=== PATIENT | male | born 1970 | race Caucasian/White ===

== ENCOUNTER 2018-05-26 17:31 | Outpatient (REF) | payer MEDICAID, SELFPAY ==
[2018-05-26 23:26] LABS: ALT 198 U/L (12-78); AST 74 U/L (15-37); Albumin 3.9 g/dL (3.4-5.0); Alkaline Phosphatase 115 U/L (46-116); Anion Gap 8.4 mmol/L (3-11); BUN 16 mg/dL (7-18); Bilirubin, Total 0.4 mg/dL (0.2-1.0); CO2 28.6 mmol/L (21.0-32.0); CREATININE 1.17 mg/dL (0.70-1.30); Calcium 8.7 mg/dL (8.5-10.1); Chloride 102 mmol/L (98-107); Glucose 93 mg/dL (70-100); Sodium 139 mmol/L (136-145); Total Protein 6.7 g/dL (6.4-8.2)
[2018-05-28 10:59] LABS: HIV-1/2 Ag & Ab Screen Negative (NEGAT)
[2018-05-31 15:16] LABS: HCV Genotype 2 (Undetected)
== END 2018-05-26 17:51 ==
LOC: NCHCN 17:31
PROVIDERS: PCP Registered Nurse; Visit Provider Registered Nurse
DX: B18.2 Chronic viral hepatitis C (principal); Z11.3 Encounter for screening for infections with a predominantly sexual mode of transmission; Z11.4 Encounter for screening for human immunodeficiency virus [HIV]
CPT/HCPCS: 80053; 86803; 87389; 87521; 87522

== ENCOUNTER 2018-10-29 15:02 | Emergency (ER) | payer MEDICAID, SELFPAY ==
[2018-10-29 15:05] VITALS: BP 126/81; PULSE 76; RESP 20; TEMP 37.1; O2SAT 99
--- NOTE | 2018-10-29 15:30 | W.ED.GENAD ---
Discharge Plan Disposition Patient Disposition: HOME Condition: Improving Discharge Details Chief Complaint: PsychEval Clinical Impression: Anxiety Primary Care Provider: CHALINO HUGHES ED Provider: Kimani Swanson Home Meds and New Rx's Prescriptions: No Action No Known Home Meds RF: 0 Discharge Instructions Instructions: Anxiety (ED) Additional Instructions: Return at any time for reevaluation. Follow-up with your medical appointments this week as planned. Continue to stay in contact with [facility] services. Medical Decision Making 48-year-old male presents from primary care physician's office. Patient states he has months of slowly increasing anxiety and stressors related to living in [place], working in [place], being to his who lives in [place]. He is currently on parole and has limited mobility. He has had near daily headache for years. He states he underwent medical screening at [facility] recently including a CAT scan of the head and as well was seen in the emergency department on Thursday with plans for possible psychiatric inpatient placement of [place] which he declined. He was discharged to home, has had ongoing anxieties that increased today. He feels as if he is going to explode. He feels high anxiety, ongoing mild, dull, achy headache without fever or rash. No recent illness. Records requested from [facility]'s visit 2 days ago. Patient underwent medical screening examination today. He has normal vital signs and his exam is unremarkable. He does seem mildly anxious and agitated. Records received and reviewed: Drug screen obtained on October 27 shows positive for THC. Salicylate level negative, TSH 0.9, urine negative for acute infection, CBC with white count 9, hematocrit 46, platelets 256, comprehensive metabolic panel showed BUN 15, creatinine 1, sodium 143, glucose 104, potassium 3.8, chloride 104, CO2 29, calcium 8.7, total bili 0.3, AST 67, ALT 197. As these labs obtained 2 days ago, do not feel repeat is indicated. Patient seen by MICHELE in consultation. Plan for outpatient care established. Patient is not a danger to himself or others. He is stable for outpatient management and will continue to follow with [facility]. HPI General Mode of arrival: ambulatory. Date/Time Provider Initiated Documentation: 10/29/18 15:03. Limitations to Documentation: no limitations. Information obtained by: patient and family. History of Present Illness 48 year old M presents to the emergency department with the chief complaint of Anxiety, stress, months of headaches, described as moderate, Quality is described as constant, and is localized to the head. Patient reports no radiation. Patient started experiencing this week(s) and it has been intermittent. No relieving factors improve symptom(s), No exacerbating factors reported . Patient notes denies confusion, chest pain, rash, seizure and syncope. Patient did receive the following treatments prior to arrival, NSAID Related Data Home Medications Medication Instructions Recorded Confirmed Unknown [No Known Home Meds] 10/29/18 10/29/18 Allergies Allergy/AdvReac Type Severity Reaction Status Date / Time bupropion [From Wellbutrin] Allergy Hives Unverified 10/29/18 15:10 Penicillins Allergy Other (See Unverified 10/29/18 15:10 Comment) General Stated Complaint: PsychEval CHELSEA: 2 Review of Systems Review of Systems Increased stress around parole, inability to use marijuana, social and financial stressors. He is had daily headaches for years that resolve primarily with ibuprofen. No thoughts of harming himself or others. 10 systems reviewed and otherwise negative [facility] Social History Smoking/Tobacco Use Status: Current every day Alcohol Intake: former Drug use: Occasionally Substance use type: former substance user and marijuana Do you feel safe at home: Yes Do you feel safe in your relationship?: Yes Exam Narrative Exam Narrative: GEN: awake, alert, oriented 3. Pleasant, well groomed, interactive. HEAD: Normocephalic, atraumatic ENT: Mucous membranes moist, oropharynx unremarkable, External ear exam unremarkable EYES: PERRL, EOMI NECK: Full ROM, no CRUZ, no menigismus CHEST/RESP: Nontender, clear to auscultation bilateral, no wheeze/rhonchi/rales CARDIOVASCULAR: RRR, no murmur, rub susi. 2+ Rad pulse bilateral ABDOMEN: Soft, nontender, no mass. +Bowel sounds EXT: Full ROM, no edema, no rash Neuro: Grossly normal neurologic exam, conversant, interactive. Psych: Speech fluent, thoughts congruent, affect anxious Course Vital Signs Temperature 37.1 C 10/29/18 15:05 Pulse 76 10/29/18 15:05 Respiratory Rate 20 10/29/18 15:05 Blood Pressure 126/81 10/29/18 15:05 Pulse Oximetry 99 10/29/18 15:05 Temperature 37.1 C 10/29/18 15:05 Temperature Source Temporal Artery Scan 10/29/18 15:05 Pulse 76 10/29/18 15:05 Respiratory Rate 20 10/29/18 15:05 Respiratory Effort Non-Labored 10/29/18 15:05 Blood Pressure 126/81 10/29/18 15:05 Blood Pressure Position Sitting 10/29/18 15:05 Pulse Oximetry 99 10/29/18 15:05 Oxygen Delivery Method Room Air 10/29/18 15:05 Oxygen Flow Rate 0 10/29/18 15:05 Pain Level 10 10/29/18 15:05
--- NOTE | 2018-10-29 15:34 | ED.GENADUL_ITS ---
Discharge Plan Disposition Patient Disposition: HOME Condition: Improving Discharge Details Chief Complaint: PsychEval Clinical Impression: Anxiety Primary Care Provider: CHALINO HUGHES ED Provider: Kimani Swanson Home Meds and New Rx's Prescriptions: No Action No Known Home Meds RF: 0 Discharge Instructions Instructions: Anxiety (ED) Additional Instructions: Return at any time for reevaluation. Follow-up with your medical appointments this week as planned. Continue to stay in contact with [facility] services. Medical Decision Making 48-year-old male presents from primary care physician's office. Patient states he has months of slowly increasing anxiety and stressors related to living in [place], working in [place], being to his who lives in [place]. He is currently on parole and has limited mobility. He has had near daily headache for years. He states he underwent medical screening at [facility] recently including a CAT scan of the head and as well was seen in the emergency department on Thursday with plans for possible psychiatric inpatient placement of [place] which he declined. He was discharged to home, has had ongoing anxieties that increased today. He feels as if he is going to explode. He feels high anxiety, ongoing mild, dull, achy headache without fever or rash. No recent illness. Records requested from [facility]'s visit 2 days ago. Patient underwent medical screening examination today. He has normal vital signs and his exam is unremarkable. He does seem mildly anxious and agitated. Records received and reviewed: Drug screen obtained on October 27 shows positive for THC. Salicylate level negative, TSH 0.9, urine negative for acute infection, CBC with white count 9, hematocrit 46, platelets 256, comprehensive metabolic panel showed BUN 15, creatinine 1, sodium 143, glucose 104, potassium 3.8, chloride 104, CO2 29, calcium 8.7, total bili 0.3, AST 67, ALT 197. As these labs obtained 2 days ago, do not feel repeat is indicated. Patient seen by MICHELE in consultation. Plan for outpatient care established. Patient is not a danger to himself or others. He is stable for outpatient management and will continue to follow with [facility]. HPI General Mode of arrival: ambulatory . Date/Time Provider Initiated Documentation: 10/29/18 15:03 . Limitations to Documentation: no limitations . Information obtained by: patient and family . History of Present Illness 48 year old M presents to the emergency department with the chief complaint of Anxiety, stress, months of headaches, described as moderate, Quality is described as constant, and is localized to the head. Patient reports no radiation. Patient started experiencing this week(s) and it has been intermittent. No relieving factors improve symptom(s), No exacerbating factors reported . Patient notes denies confusion, chest pain, rash, seizure and syncope. Patient did receive the following treatments prior to arrival, NSAID Related Data Home Medications Medication Instructions Recorded Confirmed Unknown [No Known Home Meds] 10/29/18 10/29/18 Allergies Allergy/AdvReac Type Severity Reaction Status Date / Time bupropion [From Wellbutrin] Allergy Hives Unverified 10/29/18 15:10 Penicillins Allergy Other (See Unverified 10/29/18 15:10 Comment) General Stated Complaint: PsychEval CHELSEA: 2 Review of Systems Review of Systems Increased stress around parole, inability to use marijuana, social and financial stressors. He is had daily headaches for years that resolve primarily with ibuprofen. No thoughts of harming himself or others. 10 systems reviewed and otherwise negative [facility] Social History Smoking/Tobacco Use Status: Current every day Alcohol Intake: former Drug use: Occasionally Substance use type: former substance user and marijuana Do you feel safe at home: Yes Do you feel safe in your relationship?: Yes Exam Narrative Exam Narrative: GEN: awake, alert, oriented 3. Pleasant, well groomed, interactive. HEAD: Normocephalic, atraumatic ENT: Mucous membranes moist, oropharynx unremarkable, External ear exam unremarkable EYES: PERRL, EOMI NECK: Full ROM, no CRUZ, no menigismus CHEST/RESP: Nontender, clear to auscultation bilateral, no wheeze/rhonchi/rales CARDIOVASCULAR: RRR, no murmur, rub susi. 2+ Rad pulse bilateral ABDOMEN: Soft, nontender, no mass. +Bowel sounds EXT: Full ROM, no edema, no rash Neuro: Grossly normal neurologic exam, conversant, interactive. Psych: Speech fluent, thoughts congruent, affect anxious Course Vital Signs Temperature 37.1 C 10/29/18 15:05 Pulse 76 10/29/18 15:05 Respiratory Rate 20 10/29/18 15:05 Blood Pressure 126/81 10/29/18 15:05 Pulse Oximetry 99 10/29/18 15:05 Temperature 37.1 C 10/29/18 15:05 Temperature Source Temporal Artery Scan 10/29/18 15:05 Pulse 76 10/29/18 15:05 Respiratory Rate 20 10/29/18 15:05 Respiratory Effort Non-Labored 10/29/18 15:05 Blood Pressure 126/81 10/29/18 15:05 Blood Pressure Position Sitting 10/29/18 15:05 Pulse Oximetry 99 10/29/18 15:05 Oxygen Delivery Method Room Air 10/29/18 15:05 Oxygen Flow Rate 0 10/29/18 15:05 Pain Level 10 10/29/18 15:05
[2018-10-29] MEDS: Ibuprofen 800 MG TAB PO (15:38)
[2018-10-29] MEDS: LORazepam 1 MG TAB PO (15:38)
--- NOTE | 2018-10-29 16:16 | PDOC.MHCN ---
Date of service: 10/29/18 Time of Service: 16:16 Mental Health Crisis Note Presenting Issue How did you arrive at the ED and why did you come: Romario arrived to the emergency room at [facility] on his own cognition following two screenings that have occurred this week. Romario was screened at [facility] by [facility] for anxiety that showed some signs of paranoia. It is reported a hospital bed was offered to him, but he did not take it. Following the screening, [facility] called [facility] emergency services and recommended outreach. The outreach occurred this morning and a further screening was recommended by his PCP at [facility]. That screening resulted in he going to [facility] for medical clearance to try for placement based on his report of symptoms and persistence of symptoms since the evaluation on 10-27-18. Precipitating Factors Romario reports he has a high level of anxiety related to work and legal stressors. However, in large settings (including hospital) he presents with signs of fear and paranoia that others are talking about him and trying to get him in trouble. He remains calm and composed, but states he is anxious and does not trust himself. He reports a history of three suicide attempts via hanging. He reports two hospitalizations approximately 20 years ago. One at [facility] and one at [facility]. He does not identify having suicidal ideation at the time of the assessment. However, when discussing what could happen if symptoms continue to progress, he reports a fear of him hurting himself or others. He also reports he is at the same point he was 20 years ago when he was hospitalized due to anxiety and being overwhelmed with things he is trying to do. Disposition BEHAVIOR: melancholic to sullen EYE CONTACT: fair MOOD: anxious, slightly elevated thought pattern AFFECT: flat APPETITE: good SLEEP(trouble falling/staying asleep: poor/reports only getting 3-4 hours per night. Plan Voluntary hospitalization will be sought. He will remain at [facility] until placement is completed.
--- NOTE | 2018-10-29 16:27 | PDOC.MHCN_ITS ---
Date of service: 10/29/18 Time of Service: 16:16 Mental Health Crisis Note Presenting Issue How did you arrive at the ED and why did you come: Romario arrived to the emergency room at [facility] on his own cognition following two screenings that have occurred this week. Romario was screened at [facility] by [facility] for anxiety that showed some signs of paranoia. It is reported a hospital bed was offered to him, but he did not take it. Following the screening, [facility] called [facility] emergency services and recommended outreach. The outreach occurred this morning and a further screening was recommended by his PCP at [facility]. That screening resulted in he going to [facility] for medical clearance to try for placement based on his report of symptoms and persistence of symptoms since the evaluation on 10-27-18. Precipitating Factors Romario reports he has a high level of anxiety related to work and legal stressors. However, in large settings (including hospital) he presents with signs of fear and paranoia that others are talking about him and trying to get him in trouble. He remains calm and composed, but states he is anxious and does not trust himself. He reports a history of three suicide attempts via hanging. He reports two hospitalizations approximately 20 years ago. One at [facility] and one at [facility]. He does not identify having suicidal ideation at the time of the assessment. However, when discussing what could happen if symptoms continue to progress, he reports a fear of him hurting himself or others. He also reports he is at the same point he was 20 years ago when he was hospitalized due to anxiety and being overwhelmed with things he is trying to do. Disposition BEHAVIOR: melancholic to sullen EYE CONTACT: fair MOOD: anxious, slightly elevated thought pattern AFFECT: flat APPETITE: good SLEEP(trouble falling/staying asleep: poor/reports only getting 3-4 hours per night. Plan Voluntary hospitalization will be sought. He will remain at [facility] until placement is completed.
[2018-10-29 18:03] VITALS: BP 114/76; PULSE 74; RESP 18; TEMP 36.7; O2SAT 97
[2018-10-29 18:04] VITALS: BP 114/76; PULSE 74; RESP 18; TEMP 36.7; O2SAT 97
--- NOTE | 2018-10-31 11:41 | PDOC.MHCN ---
Date of service: 10/29/18 Time of Service: 17:00 Mental Health Crisis Note Presenting Issue How did you arrive at the ED and why did you come: Addendum to previous note: Patient became anxious while waiting for referral. He did not meet criteria for an involuntary placement at that time. A safety plan with phone checks with [facility], a follow up with his private clinician, a neurology assessment at [facility], and prescribed medication options was discussed and will be addressed in [facility] follow up calls with
--- NOTE | 2018-10-31 11:44 | PDOC.MHCN_ITS ---
Date of service: 10/29/18 Time of Service: 17:00 Mental Health Crisis Note Presenting Issue How did you arrive at the ED and why did you come: Addendum to previous note: Patient became anxious while waiting for referral. He did not meet criteria for an involuntary placement at that time. A safety plan with phone checks with [facility], a follow up with his private clinician, a neurology assessment at [facility], and prescribed medication options was discussed and will be addressed in [facility] follow up calls with
== END 2018-10-29 18:15 | disposition home or self-care (01) ==
PROVIDERS: Emergency Provider Emergency Medicine; PCP Registered Nurse
DX: F41.9 Anxiety disorder, unspecified (principal); Z60.8 Other problems related to social environment; Z65.3 Problems related to other legal circumstances
CPT/HCPCS: 99283

== ENCOUNTER 2019-03-09 08:55 | Outpatient (REF) | payer MEDICAID, SELFPAY ==
[2019-03-09 22:43] LABS: ALT 23 U/L (16-63); AST 16 U/L (15-37); Albumin 3.7 g/dL (3.4-5.0); Alkaline Phosphatase 123 U/L (46-116); Anion Gap 8.4 mmol/L (3-11); Bilirubin, Direct 0.07 mg/dL (0.00-0.20); Bilirubin, Total 0.3 mg/dL (0.2-1.0); CO2 29.6 mmol/L (21.0-32.0); Chloride 105 mmol/L (98-107); Sodium 143 mmol/L (136-145); Total Protein 6.3 g/dL (6.4-8.2)
== END 2019-03-09 09:15 ==
LOC: LBN 08:55
PROVIDERS: PCP Registered Nurse; Visit Provider Psychiatry & Neurology Neurology
DX: K76.89 Other specified diseases of liver (principal)
CPT/HCPCS: 80051; 80076

== ENCOUNTER 2019-06-17 21:26 | Outpatient (REF) | payer MEDICAID, SELFPAY ==
[2019-06-20 13:56] LABS: HCV RNA Detection Quantitative 0 IU/mL (Undetected)
== END 2019-06-17 21:46 ==
LOC: LBN 21:26
PROVIDERS: PCP Registered Nurse; Visit Provider Internal Medicine Gastroenterology
DX: B18.2 Chronic viral hepatitis C (principal)
CPT/HCPCS: 87522

== ENCOUNTER 2025-05-24 20:54 | Emergency (ER) | payer SELFPAY ==
[2025-05-24 20:57] VITALS: BP 128/80; PULSE 72; RESP 16; TEMP 36.3; O2SAT 98
[2025-05-24 23:14] LABS: BE (Venous) 4 mmol/L (-2-3); HCO3 (Venous) 28 mmol/L (23-28); O2 Sat (Venous) 94 %; TCO2 (Venous) 25 mmol/L (24-29); pCO2 (Venous) 43 mmHg (41-51); pO2 (Venous) 65 mmHg
[2025-05-24 23:17] LABS: Abs Immature Grans 0.02 10^3/uL (0.0-0.06); HCT 39.6 % (40.0-50.0); HGB 13.1 g/dL (13.5-17.5); Immature Grans % 0.2 %; MCH 29.4 pg (27.0-33.0); MCHC 33.1 % (32.0-36.0); MCV 89 fL (80-95); MPV 9.0 fL (8.0-11.0); Platelet Count 308 10^3/uL (130-400); RBC 4.45 10^6/uL (4.36-5.78); RDW 13.0 % (11.8-14.1); RDW-SD 42.4 fL; WBC 9.95 10^3/uL (4.4-10.8)
--- NOTE | 2025-05-24 23:18 | W.ED.GENAD ---
Discharge Plan Discharge Details Chief Complaint: GenMedical Clinical Impression: Auditory hallucination Primary Care Provider: Shaina Winston ED Provider: Justin Mendez Home Meds and New Rx's Prescriptions: No Action No Known Home Meds HPI General Date/Time Provider Initiated Documentation: 05/24/25 21:45. HPI Narrative: 55-year-old male with past medical history of bipolar disorder, ADHD, tonsillectomy, who self admits to a history of chronic auditory and visual hallucinations, presents today for evaluation of worsening auditory and visual hallucinations. Patient states that he used to be on medications for this a few years ago, but stopped taking them because of the side effects. As of late he has been doing a fair bit of crack, most recent use was this morning. This notably worsens his symptomatology. He states that the voices and the visual disturbances are worsening. He denies any headache. He denies any vision change. He states that he sees things like his ex-, or he has voices that tell him to go places to help people. He denies any homicidal or suicidal ideations though. He denies any numbness or tingling. He denies any other complaints at this time. He presents today looking for help, rehabilitation, detox, and housing. He is currently homeless. Related Data Home Medications ?Medication ?Instructions ?Recorded ?Confirmed Unknown [No Known Home Meds] 10/29/18 05/24/25 Allergies Allergy/AdvReac Type Severity Reaction Status Date / Time bupropion (From Wellbutrin) Allergy Hives Unverified 05/24/25 21:01 Penicillins Allergy Other (See Unverified 05/24/25 21:01 Comment) General Stated Complaint: GenMedical CHELSEA: 3 Exam Narrative Exam Narrative: 1.Const: Well-nourished, Well-developed, appearing stated age 2.Eyes: PERRL, no conjunctival injection, and symmetrical lids. 3.ENT: Atraumatic external nose and ears. Moist MM. Neck: Symmetric, trachea midline, No thyromegaly. 4.CVS: +S1/S2, Peripheral pulses 2+ and equal in all extremities. Brisk capillary refill in all extremities. 5.RESP: Unlabored respiratory effort. Clear to auscultation bilaterally. No wheezes rales or rhonchi 6.GI: Soft, Nontender/Nondistended, No hepatosplenomegaly. No guarding or rebound. 7.MSK: Normocephalic/Atraumatic, Extremities w/o deformity or ttp No cyanosis or clubbing, Normal movement of all extremities 8.Skin: Warm, Dry. No rashes or lesions. 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 Sensation grossly intact, no focal neurologic deficits. 10.Psych: (AAO) x3. Appropriate mood and affect Course Vital Signs Vital signs: Vital Signs Temperature 36.3 C L 05/24/25 20:57 Pulse 72 05/24/25 20:57 Respiratory Rate 16 05/24/25 20:57 Blood Pressure 128/80 05/24/25 20:57 Pulse Oximetry 98 05/24/25 20:57 Temperature 36.3 C L 05/24/25 20:57 Pulse 72 05/24/25 20:57 Respiratory Rate 16 05/24/25 20:57 Respiratory Effort Normal 05/24/25 22:32 Blood Pressure 128/80 05/24/25 20:57 Pulse Oximetry 98 05/24/25 20:57 Oxygen Delivery Method Room Air 05/24/25 20:57 Oxygen Flow Rate 0 05/24/25 20:57 Lab/Test Results Lab/Test Results: Laboratory Tests Range/Units 05/24/25 23:08 WBC (4.4-10.8) 10^3/uL 9.95 RBC (4.36-5.78) 10^6/uL 4.45 Hgb (13.5-17.5) g/dL 13.1 L Hct (40.0-50.0) % 39.6 L MCV (80-95) fL 89 MCH (27.0-33.0) pg 29.4 MCHC (32.0-36.0) % 33.1 RDW (11.8-14.1) % 13.0 Plt Count (130-400) 10^3/uL 308 MPV (8.0-11.0) fL 9.0 Immature Gran % % 0.2 Neutrophils % % 50.1 Lymphocytes % % 39.6 Monocytes % % 7.4 Eosinophils % % 2.4 Basophils % % 0.3 Nucleated RBC % (0.0-0.3) % 0.0 Absolute Neutrophils (1.2-6.7) 10^3/uL 4.98 Absolute Lymphocytes (1.2-3.4) 10^3/uL 3.94 H Absolute Monocytes (0.1-0.8) 10^3/uL 0.74 Absolute Eosinophils (0.0-0.7) 10^3/uL 0.24 Absolute Basophils (0.0-0.2) 10^3/uL 0.03 VBG pH (7.31-7.41) 7.42 H VBG pCO2 (41-51) mmHg 43 VBG pO2 mmHg 65 VBG HCO3 (23-28) mmol/L 28 VBG Total CO2 (24-29) mmol/L 25 VBG O2 Saturation % 94 VBG Base Excess (-2-3) mmol/L 4 H Medical Decision Making 55-year-old male with past medical history of bipolar disorder, ADHD, tonsillectomy, who self admits to a history of chronic auditory and visual hallucinations, presents today for evaluation of worsening auditory and visual hallucinations. Patient states that he used to be on medications for this a few years ago, but stopped taking them because of the side effects. As of late he has been doing a fair bit of crack, most recent use was this morning. This notably worsens his symptomatology. He states that the voices and the visual disturbances are worsening. He denies any headache. He denies any vision change. He states that he sees things like his ex-, or he has voices that tell him to go places to help people. He denies any homicidal or suicidal ideations though. He denies any numbness or tingling. He denies any other complaints at this time. He presents today looking for help, rehabilitation, detox, and housing. He is currently homeless. Exam demonstrates an otherwise well-appearing male, no neurologic deficits, no evidence of altered mental status. Symptomatology appears consistent with potential schizophrenia, bipolar, or secondary effect to the crack cocaine. We will medically clear the patient, enlist the help of our mental health advocates to determine potential opportunities for placement in rehab, we will monitor closely and reassess. 1:34 AM Patient has been seen and assessed by mental health, they agree with potential for inpatient assessment. Patient is requesting inpatient assessment. We will keep the patient here until acceptance at inpatient facility. Patient will be signed out to my colleague. [facility] All Active Problems (Updated 05/25/25 @ 01:34 by Justin Mendez DO) Auditory hallucination (Acute) Social History Smoking/Tobacco Use Status: Current every day Smoking risk assessment performed?: Yes Alcohol Intake: former Drug use: Occasionally Substance use type: former substance user, marijuana and crack/cocaine Details: zylazine Do you feel safe at home: Yes Do you feel safe in your relationship?: Yes
[2025-05-24 23:20] VITALS: RESP 21
[2025-05-24 23:38] VITALS: PULSE 74; RESP 15
[2025-05-24 23:40] VITALS: PULSE 73; RESP 15
[2025-05-24 23:40] LABS: ALT 43 U/L (10-49); AST 35 U/L (<34); Albumin 3.9 g/dL (3.2-5.0); Alkaline Phosphatase 146 U/L (46-116); Anion Gap 8.7 mmol/L (3-11); BUN 19 mg/dL (9-23); Bilirubin, Total 0.20 mg/dL (0.2-1.2); CO2 27.3 mmol/L (20.0-31.0); Calcium 8.6 mg/dL (8.3-10.6); Chloride 106 mmol/L (98-107); Glucose 97 mg/dL (74-106); Potassium 3.5 mmol/L (3.5-5.1); Sodium 142 mmol/L (136-145); Total Protein 6.5 g/dL (5.7-8.2)
[2025-05-24 23:42] LABS: TSH (W/Ref FT4) 2.40 uIU/mL (0.55-4.78)
[2025-05-24 23:45] LABS: Acetaminophen < 2 ug/mL (10-20); Salicylate < 3.0 mg/dL (<30.0)
[2025-05-25] VITALS (15 sets, daily range): BP systolic 144–160; BP diastolic 62–78; PULSE 71–86; RESP 14–18; TEMP 36.8; O2SAT 97
--- NOTE | 2025-05-25 01:36 | PDOC.MHCN_ITS ---
Date of service: 05/25/25 Time of Service: 01:13 Mental Health Emergency Note Release [facility] release signed:: No Reason for Visit Romario has had two previous encounters with [facility] but is not well known to the agency or this publications writer. [facility] and del[facility]. In the last 2 weeks has the pt presented for ES prior to today?: Unknown Client Information Client is: New Well Housed: Yes Non Suicidal Self Injury Current: No History: No Safety Risk/Harm to Self or Others Current Ideation to Harm Self or Others: No CALM/Risk Level Does risk to harm exist?: No Risk: N/A Duty to warn indicated: No Asssessment/Mental Status Appearance: Disheveled Attitude: Guarded and Other (uncooperative) Behavior: Gait disturbances Speech: Soft Affect: Flat Mood: Irritable and Other (tired) Thought process: Unremarkable Hallucinations: No evidence Delusions: yes, (client disclosed he was delusional no further disclosure though. ) Other Attention: Unremarkable Perception: Not impaired Orientation: Fully orientated Memory: Intact Insight: Poor Judgement: Poor Neurovegetative Symptoms Sleep: No change Appetitie: No change Interests: No change Energy: No change Libido: No change Substance Use: Do you use nicotine?: No Have you used substances in the last 7 days?: No Additional Issues: Assaultive/Threatening Behavior: No Medical Concerns: No Client engaged in active self harm w/weapon: No Threatening to run away: No Child reported abuse/neglect: No Voluntarily presenting for services: Yes Domestic violence is a concern: No Extreme Psychosis or extreme behavior is present: No Impression Romario is a [age] year old male who presents to [facility] due to hallucinations and delusions. This publications writer sees Romario via trlehelaht which he is woken up for. Romario does not engage much in the assessment. Denies SI,HI, NSSI but reports he needs help and wants inpatient treatment due to the delusions. Romario reports he is not on any medications and he needs to be. Romario kept dozing off during assesment so referrals will be sent and an extended assessment will be completed in the morning. Plan/Disposition Recommended Disposition: Hospitalization (referrals will be made on 05/25) facilities contacted. Plan: Romario will remain at [facility] until treatment is secured Person reported agreement to plan: Yes Reports/communication Outcome discussed with: ED/Personnel
[2025-05-25 01:57] LABS: Ammonia 22 umol/L (11-32)
--- NOTE | 2025-05-25 08:05 | ED.PSYCHBOAR ---
Date of service: 05/25/25 Time of Service: 08:05 Psychiatric Border Handoff Update Brief Story: Patient here on voluntary status for delusions and hallucinations, no new acute complaints, will continue to monitor until safe disposition found. Status: voluntary Able to leave: would need physician/KORI and crisis evaluation prior to leaving Mediation Reconciliation performed: Yes Code Status ordered: Yes Diet ordered: Yes Discharge Plan Discharge Details Chief Complaint: GenMedical Clinical Impression: Auditory hallucination Primary Care Provider: Shaina Winston ED Provider: Caden Lai Home Meds and New Rx's Prescriptions: No Action No Known Home Meds
--- NOTE | 2025-05-25 09:44 | ED.PSYCHBOAR ---
Date of service: 05/25/25 Time of Service: 09:44 Psychiatric Border Handoff Update Brief Story: I was notified by nursing that the patient eloped. Patient never had any SI or HI and this morning was clinically sober and decision-making capacities. [facility] and human services was notified. Given his lack of HI or SI and calm cooperative demeanor this morning I do not feel he requires a mandated return to the emergency department. Status: voluntary Discharge Plan Disposition Patient Disposition: Eloped Condition: Stable Discharge Details Clinical Impression: Auditory hallucination Primary Care Provider: Shaina Winston ED Provider: Caden Lai Home Meds and New Rx's Prescriptions: No Action No Known Home Meds
[2025-05-25 16:52] LABS: Cannabinoids THC Positive (Negative)
== END 2025-05-25 09:50 | disposition left against medical advice (07) ==
PROVIDERS: Student in an Organized Health Care Education/Training Program; Emergency Provider Emergency Medicine; PCP Registered Nurse
DX: R44.0 Auditory hallucinations (principal); Z59.00 Homelessness unspecified; Z53.20 Procedure and treatment not carried out because of patient's decision for unspecified reasons
CPT/HCPCS: 00123; 36415; 80053; 80307; 82805; 99285; G0378; 80320; 80329; 82140; 84443; 85025

== ENCOUNTER 2025-05-30 17:33 | Emergency (ER) | payer SELFPAY ==
[2025-05-30 17:34] VITALS: BP 119/74; PULSE 80; RESP 16; TEMP 36.6; O2SAT 98
--- NOTE | 2025-05-30 17:55 | ED.GENADUL_ITS ---
Discharge Plan Disposition Patient Disposition: Home Discharge Details Clinical Impression: Abdominal discomfort, generalized, Substance use disorder Primary Care Provider: Shaina Winston ED Provider: Kristine Langford Home Meds and New Rx's Prescriptions: No Action No Known Home Meds Discharge Instructions Additional Instructions: Please follow-up with resources provided by [facility] and follow the safety plan as discussed. Your workup today was reassuring. All of your labs are unremarkable. I recommend that you continue working with your primary care provider if you continue to have occasional abdominal discomfort and nausea. I encourage you to continue seeking admission with [facility] for substance abuse recovery. Return to emergency care at any time if you develop thoughts of hurting yourself or others, feel unsafe, have severe abdominal pain and uncontrollable vomiting, or if you are very worried and need to be rechecked immediately. Stand Alone Forms: Portal Information Referrals: [facility] [Outside] Shaina Winston, [employer] [Primary Care Provider, Medicine] HPI General Date/Time Provider Initiated Documentation: 05/30/25 17:43 . HPI Narrative: Romario is a 55-year-old male with history of personality disorder, ADHD, and crack cocaine use who presents to the emergency department today for medical evaluation prior to admission to [facility]. He reports that he last used crack 2 days ago, none since then. Reports he is overall feeling well. Denies fever/chills, congestion, sore throat, cough, chest pain, difficulty breathing, change in bowel or bladder function, extremity weakness, balance problems. He does admit to occasional headaches and my kidneys and liver hurt sometimes with intermittent nausea and vomiting. Has been able to take p.o. without difficulty. Denies significant past medical history. Denies hallucinations, SI, HI, or other substance use. He does admit to smoking tobacco. Related Data Home Medications ?Medication ?Instructions ?Recorded ?Confirmed Unknown [No Known Home Meds] 10/29/18 1 07/31/24 Allergies Allergy/AdvReac Type Severity Reaction Status Date / Time bupropion (From Wellbutrin) Allergy Hives Unverified 05/24/25 21:01 Penicillins Allergy Other (See Unverified 05/24/25 21:01 Comment) General Stated Complaint: DrugWithdr/MAT CHELSEA: 3 Exam Const General: cooperative, healthy appearing, comfortable and no acute distress Nutritional Appearance: average body habitus Orientation: alert and oriented x3 HENMT Head: normal to inspection and atraumatic Ears: hearing grossly normal bilaterally General nose exam: external nose normal Mouth: oral mucosae normal Eyes Pupils: PERRL EOM: EOM intact bilaterally Resp Effort & Inspection: normal respiratory effort and able to speak in complete sentences Auscultation: clear to auscultation bilaterally Cardio Rate: regular rate Rhythm: regular rhythm GI Inspection: normal to inspection Palpation: soft, no masses and nontender Skin General skin exam: other (Dry cracked skin noted to knuckles bilaterally) Neuro General: patient alert, gait normal, tone normal, moves all extremities, no focal motor deficits and CN's II-XI intact bilaterally Cognition: normal cognition Speech: speech normal Gait: normal gait Motor: muscle tone normal throughout and strength 5/5 throughout Coordination: [id number] test normal, Romberg test normal, tandem gait normal, Does not sway with eyes open and rapid alternating movement UE normal Extrem General: normal to inspection Psych Appearance: grossly normal Speech and Movement: speech and movement normal Affect: normal affect Attitude: cooperative Thought Content: normal, no delusions, no hallucinations, no homicidality and suicidality Course Vital Signs Vital signs: Vital Signs Temperature 36.6 C 05/30/25 17:34 Pulse 80 05/30/25 17:34 Respiratory Rate 16 05/30/25 17:34 Blood Pressure 119/74 05/30/25 17:34 Pulse Oximetry 98 05/30/25 17:34 Temperature 36.6 C 05/30/25 17:34 Pulse 80 05/30/25 17:34 Respiratory Rate 16 05/30/25 17:34 Blood Pressure 119/74 05/30/25 17:34 Pulse Oximetry 98 05/30/25 17:34 Pain Level 5 05/30/25 17:34 Medical Decision Making Romario is a 55-year-old male with history of personality disorder, ADHD, and crack cocaine use who presents to the emergency department today for medical evaluation prior to admission to [facility]. Plan is for him to go to [facility] tomorrow for admission, says that [facility] refinery operator light ends recovery will drive him. He reports that he last used crack 2 days ago, none since then. Reports he is overall feeling well. Denies fever/chills, congestion, sore throat, cough, chest pain, difficulty breathing, change in bowel or bladder function, extremity weakness, balance problems. He does admit to occasional headaches and my kidneys and liver hurt sometimes with intermittent nausea and vomiting. Has been able to take p.o. without difficulty. Denies significant past medical history. Denies hallucinations, SI, HI, or other substance use. He does admit to smoking tobacco. Patient is homeless. Physical exam very reassuring. Romario alert and oriented, in no acute distress. Cranial nerves II through XII intact as tested. Normal finger to finger, finger-nose, Romberg, gait, tandem gait, rapid alternating movements. Moist mucous membranes. PERRL, EOMs intact. Easy work of breathing, lung sounds clear bilaterally. Normal heart sounds. Abdomen soft, nondistended, nontender to palpation. Cracked dry knuckles noted bilaterally, no erythema or drainage consistent with cellulitis. Patient here for medical screening exam. No red flags concerning for serious intra-abdominal or intracranial pathology. No red flags indicating need for mental health/crisis screening. As patient is here for medical screening is reporting intermittent abdominal discomfort, will obtain basic labs prior to admission to [facility]. [facility] ref[facility] called, says that patient has been presented to [facility], but they encouraged him to seek mental health care before admission. [facility] crisis counselor Karla consulted; no acute mental health concerns. Patient to be safety plan, Karla will follow-up with [facility] to let them know he will be linked in with counseling and support services. I independently interpreted the following tests: CBC, CMP, UA all unremarkable. CMP does show elevated alkaline phosphatase, consistent with baseline. UDS notable for cocaine and THC. While in the emergency department Romario's cracked skin on his knuckles was cleansed gently with antibacterial soap and water, a thin layer of bacitracin and Vaseline was applied. Reviewed discharge instructions with patient, including symptomatic management and indications of red flags to return to emergency care. Patient to follow safety plan. [facility] All Active Problems (Updated 05/30/25 @ 20:55 by Kristine Norton) Substance use disorder (Acute) Abdominal discomfort, generalized (Acute) Auditory hallucination (Acute) Social History Smoking/Tobacco Use Status: Current every day Smoking risk assessment performed?: Yes Alcohol Intake: former Drug use: Occasionally Substance use type: former substance user, marijuana and crack/cocaine Details: zylazine Do you feel safe at home: Yes Do you feel safe in your relationship?: Yes
--- NOTE | 2025-05-30 17:59 | NUR.NOTE ---
Nursing Note: This RN spoke with Cassie from [facility], she explained that she spent the day with the patient today trying to find housing placement, she reports that [facility] said they will not take him at this time as they believe he needs to work on his mental health before they will place him there.
[2025-05-30 18:23] LABS: Glucose Negative (Negative)
[2025-05-30 18:31] LABS: RBC Negative HPF (0-2); WBC 0-2 HPF (0-5)
[2025-05-30 18:32] LABS: C & S Indicated? No
[2025-05-30 18:33] LABS: Abs Immature Grans 0.03 10^3/uL (0.0-0.06); HCT 39.9 % (40.0-50.0); HGB 13.3 g/dL (13.5-17.5); Immature Grans % 0.3 %; MCH 29.9 pg (27.0-33.0); MCHC 33.3 % (32.0-36.0); MCV 90 fL (80-95); MPV 9.4 fL (8.0-11.0); Platelet Count 318 10^3/uL (130-400); RBC 4.45 10^6/uL (4.36-5.78); RDW 13.3 % (11.8-14.1); RDW-SD 43.6 fL; WBC 8.85 10^3/uL (4.4-10.8)
[2025-05-30 18:45] LABS: Cannabinoids THC Positive (Negative)
[2025-05-30 18:51] LABS: ALT 33 U/L (10-49); AST 30 U/L (<34); Albumin 4.3 g/dL (3.2-5.0); Alkaline Phosphatase 165 U/L (46-116); Anion Gap 7.6 mmol/L (3-11); BUN 20 mg/dL (9-23); Bilirubin, Total 0.3 mg/dL (0.2-1.2); CO2 27.4 mmol/L (20.0-31.0); Calcium 8.4 mg/dL (8.3-10.6); Chloride 110 mmol/L (98-107); Glucose 139 mg/dL (74-106); Potassium 3.7 mmol/L (3.5-5.1); Sodium 145 mmol/L (136-145); Total Protein 6.8 g/dL (5.7-8.2)
[2025-05-30 21:09] VITALS: BP 120/88; PULSE 72; RESP 18; TEMP 36.8; O2SAT 100
== END 2025-05-30 22:23 | disposition home or self-care (01) ==
PROVIDERS: Emergency Provider Nurse Practitioner Family; PCP Registered Nurse
DX: R10.84 Generalized abdominal pain (principal); F19.90 Other psychoactive substance use, unspecified, uncomplicated
CPT/HCPCS: 99283 ×2; 80053; 80307; 81003; 81015; 85025